=== PATIENT | female | born 1985 | race Caucasian/White ===

== ENCOUNTER 2024-09-12 21:35 | Emergency (ER) | payer BC, SELFPAY ==
[2024-09-12 21:41] VITALS: BP 140/90
[2024-09-12 22:11] LABS: % Basophils 0.7 % (0-2); % Immature Granulocytes 0.2 % (0-0.5); % Lymphocytes 37.5 % (20.5-51.1); % Monocytes 4.4 % (1.7-9.3); % Neutrophils 51.2 % (42.2-75.2); Absolute Eosinophils 0.3 10^3/uL (0-0.7); Absolute Lymphocytes 2.1 10^3/uL (1.2-3.4); Absolute Monocytes 0.2 10^3/uL (0.1-0.6); Absolute Neutrophils 2.8 10^3/uL (1.4-6.5); Mean Corp Hgb Conc. 35.9 g/dL (33.0-37.0); Mean Corpuscular Volume 86.3 fL (81.0-99.0); Mean Platelet Volume 8.9 fL (7.4-10.4); Nucleated Red Blood Cells % 0 %; Platelet Count 284 10^3/uL (130-400); Red Blood Cell Count 4.52 10^6/uL (4.20-5.40); White Blood Cell Count 5.5 10^3/uL (4.8-10.8)
[2024-09-12 22:26] LABS: ALT (SGPT) 19 U/L (0-35); AST (SGOT) 25 U/L (14-36); Albumin 4.6 g/dl (3.5-5.0); Alkaline Phosphatase 67 U/L (38-126); Blood Urea Nitrogen 9 mg/dl (7-17); Calcium 9.7 mg/dl (8.4-10.2); Carbon Dioxide 25 mmol/L (22-30); Chloride 105 mmol/L (98-107); Glucose 77 mg/dl (70-99); Sodium 138 mmol/L (135-145); Total Bilirubin 0.7 mg/dl (0.2-1.3); Total Protein 7.3 g/dl (6.3-8.2); eGFR > 60.00
[2024-09-12 22:30] LABS: Troponin I < 0.012 ng/ml
--- NOTE | 2024-09-13 00:26 | ED.GENMED ---
History of Present Illness
General
Chief Complaint: Musculo-Skeletal Complaint
Source: patient and spouse
Exam Limitations: none
Time Seen by Provider: 09/13/24 00:13
Nursing documentation reviewed up to this point in time: agreed with
History of Present Illness
History of Present Illness:
38 yo female presents to the emergency department c/o left shoulder pain that began earlier today. It hurts when she moves it. She took ibuprofen and it did help.
Past History
Past History
ED Past Medical History: Other (Premalignant right ovarian cyst)
ED Past Surgical History: Gynecological
Social History
Tobacco: Vaping
Alcohol: Occasional
Drug: Marijuana
Personal:
Living: with family
Employment: Employed
Review of Systems
Review of Systems
Allergies reviewed?: Yes
All Other Systems: Not applicable
Constitutional: Reports no symptoms
EENT: Reports no symptoms
Respiratory: Reports no symptoms
Cardiac: Reports no symptoms
ABD/GI: Reports no symptoms
: Reports no symptoms
Musculoskeletal: Reports joint pain
Skin: Reports no symptoms
Neurological: Reports no symptoms
Endocrine: Reports no symptoms
Hematologic/Lymphatic: Reports no symptoms
Psychiatric: Reports no symptoms
Phy Exam
Physical Exam
Physical Exam:
.
Physical Exam
General: no apparent distress, not acutely ill
Neck: supple. no meningeal signs. normal posterior pharynx
Heart: s1/s2 regular rate and rhythm, no murmur. equal radial
pulses.
HEENT: Pupils equal round reactive to light, EOMI
Lungs: no acute respiratory distress. clear bilaterally
Abdomen: normal bowel sounds. not tender. no CVAT
Neuro: alert and oriented. no focal neurological deficits cranial nerves II through XII intact
Skin: no rash
Psychiatric: well kept. interactive and cooperative
Extremities: no edema. no calf tenderness. negative homans. good distal pulses, left shoulder tender to palpation subscapular
Course
Orders/Labs/Results
Orders:
Orders
09/12/24 21:45
Electrocardiogram (*1) Urgent
Reason for Study: Other
Other Reason for Exam: chest tingling
EKG- Treatment ONCE
09/12/24 21:57
Complete Blood Count/With Diff Urgent
Comprehensive Metabolic Panel Urgent
Troponin I Urgent
09/13/24 00:24
Ketorolac [Toradol] 15 mg IM NOW STA
09/12/24 21:57
09/12/24 21:57
Vital Signs
Initial and Last Documented VS:
Initial Vital Signs
Temp Pulse Resp BP Pulse Ox
99 F 70 16 140/90 100
09/12/24 21:41 09/12/24 21:41 09/12/24 21:41 09/12/24 21:41 09/12/24 21:41
Last Documented Vital Signs
Temp Pulse Resp BP Pulse Ox
99 F 60 16 111/84 100
09/12/24 21:41 09/13/24 01:21 09/13/24 01:21 09/13/24 01:21 09/13/24 01:21
MDM/Problems Addressed
Differential Diagnosis Includes:
ACS, PE, left shoulder strain
MDM/Problems Addressed:
38-year-old female with left shoulder pain, likely sprain. No chest pain. Normal troponin, normal EKG. Stable for discharge. Follow-up with primary care.
*Pulse Oximetry
Patient hypoxic: no
*EKG
Interpreted by ED Provider?: Yes
EKG Intrepretation Date: 09/13/24
EKG Intrepretation Time: 21:49
Interpretation: normal
Comparison EKG: no comparison EKG present
Heart Rate: 65
Rate: normal
Rhythm: sinus
[place]: normal axis
Interval: normal interval
QRS Pattern: normal QRS
Ischemia: no ischemia
*Vocational Instructor Interpretation
Rate: normal
Interpretation: normal
Heart Rate: 64
Rhythm: sinus
*Critical Care Note
Total Time (30-74mins, 75-104mins- exclusive of procedures): Not Applicable
Patient Management
Social determinants of health affecting care: Living situation and Strong social support
Escalation/DeEscalation of care consider admission/obs:
Admit not indicated
ED Attending Note
-
Portions of this chart may have been created with voice recognition software.� Occasional wrong word or��sound alike� substitutions may have occurred due to the inherent limitations of voice recognition software.
Discharge Plan
Departure
Patient Disposition: Home (Routine Discharge)
Date of Disposition: 09/13/24
Time of Disposition: 00:32
Patient with high blood pressure during this ER visit?: Yes
Condition: Good
Discharge Problem:
Acute pain of left shoulder
Instructions: Shoulder pain, BLOOD PRESSURE
Prescriptions:
No Action
diclofenac sodium 75 mg tablet,delayed release (DR/EC)
75 mg PO BID PRN (Reason: pain) Qty: 30 0RF
Activity Restrictions/Additional Instructions:
Follow-up with primary care in 3 to 5 days. Return for any concerns.
Interventions
Interventions:
*Risk Screen - Suicide Last Done: 09/12/24 21:41
*General Assessment Last Done: 09/12/24 21:41
*Nursing Disposition Last Done: 09/13/24 01:21
Discharge Date and Time
Discharge Date/Time: 09/13/24 01:21
Print Language: IRANIAN
[2024-09-13] MEDS: TORADOL 15 MG IM (01:11)
[2024-09-13 01:21] VITALS: BP 111/84
== END 2024-09-13 01:21 | disposition home or self-care (01) ==
LOC: EMR 21:35
PROVIDERS: EMERGENCY PHYSICIAN Emergency Medicine; FAMILY PHYSICIAN Family Medicine
DX: M25.512 Pain in left shoulder (principal); F17.290 Nicotine dependence, other tobacco product, uncomplicated
CPT/HCPCS: 99284; 96372; 80053; 84484; 85025; 93005